=== PATIENT | female | born 1990 | race Caucasian/White ===

== ENCOUNTER → 2017-01-19 | Outpatient (CLI) | payer BC ==
[~2017-01-19] MED LIST: PRENTAB26 PO
[2017-01-19 13:07] LABS: URINE APPEARANCE CLOUDY (CLEAR); URINE BILIRUBIN NEG (NEG); URINE COLOR YELLOW; URINE EPITHELIAL CELL AUTO >30 /lpf (0-5); URINE NITRITE POS (NEG); URINE SPECIFIC GRAVITY 1.025 (1.000-1.030); UROBILINOGEN NEG (NEG)
[2017-01-19 13:18] LABS: MANUAL MICROSCOPIC REQUIRED? NO; REVIEW REQ? NO
== END | disposition home or self-care (01) ==
LOC: C.LABSPEC 12:23
PROVIDERS: ATTEND Obstetrics & Gynecology
DX: R39.9 Unspecified symptoms and signs involving the genitourinary system (principal)

== ENCOUNTER → 2017-09-14 | Outpatient (CLI) | payer BC ==
--- NOTE | 2017-09-14 08:01 | DIAGNOSTIC IMAGING REPORT ---
(RENAL)RETROPERITON COMP HISTORY: 27 years-old Female N23 Renal colic on right [id number] acute right-sided flank pain COMPARISON: None available TECHNIQUE: Multiple real-time sonogram images of the kidneys and urinary bladder were obtained assessing grayscale appearance and color flow FINDINGS: Right kidney measures 10.5 x 4.5 x 5.6 cm and demonstrates mild dilation of the renal pelvis and central calyces without renal calculus or other obstructing etiology identified. Cortical medullary differentiation is preserved. Left kidney measures 11.9 x 5.9 x 4.6 cm and is also within normal limits without renal calculi, hydronephrosis or focal renal mass lesions. Cortical medullary differentiation is preserved. Urinary bladder is unremarkable with bilateral ureteral jets documented. IMPRESSION: 1. Mild right-sided hydronephrosis without renal calculi identified. 2. Unremarkable sonographic appearance of the left kidney and urinary bladder. The above report was generated using voice recognition software. It may contain grammatical, syntax or spelling errors. Electronically signed by: Tejas Espinoza M.D. 09/14/2017 8:00 AM Dictated Date/Time: 09/14/2017 7:56 AM
== END | disposition home or self-care (01) ==
LOC: C.ULTR 07:35
PROVIDERS: ATTEND Obstetrics & Gynecology
DX: N23 Unspecified renal colic (principal)

== ENCOUNTER → 2017-09-18 | Outpatient (CLI) | payer BC | END | disposition home or self-care (01) | LOC: C.LABSPEC 11:11 | PROVIDERS: ATTEND Urology | DX: R31.29 Other microscopic hematuria (principal); R30.0 Dysuria ==

== ENCOUNTER → 2017-09-19 | Outpatient (CLI) | payer BC ==
[2017-09-19 13:23] LABS: ALBUMIN 3.8 gm/dl (3.4-5.0); ALT/SGPT 21 U/L (12-78); AST/SGOT 16 U/L (15-37); BLOOD UREA NITROGEN 9 mg/dl (7-18); CALCIUM 8.6 mg/dl (8.5-10.1); CARBON DIOXIDE 26 mmol/L (21-32); CREATININE 0.66 mg/dl (0.60-1.20); GLUCOSE 93 mg/dl (70-99); POTASSIUM 3.9 mmol/L (3.5-5.1); SODIUM 136 mmol/L (136-145)
[2017-09-19 13:26] LABS: ALKALINE PHOSPHATASE 60 U/L (45-117); TOTAL PROTEIN 7.5 gm/dl (6.4-8.2)
== END | disposition home or self-care (01) ==
LOC: C.LABPBG 08:52
PROVIDERS: ATTEND Urology
DX: R31.29 Other microscopic hematuria (principal); R30.0 Dysuria

== ENCOUNTER → 2017-09-24 | Outpatient (CLI) | payer BC ==
--- NOTE | 2017-09-24 08:12 | DIAGNOSTIC IMAGING REPORT ---
ABDOMEN AND PELVIS CT WITHOUT CONTRAST CT DOSE: 568.50 mGy.cm HISTORY: Acute hematuria with intermittent lower pelvic pain . Mild right-sided hydronephrosis seen on comparison ultrasound R31.29 Hematuria, microscopic TECHNIQUE: Multiaxial CT images of the abdomen and pelvis were performed without contrast. A dose lowering technique was utilized adhering to the principles of ALARA. COMPARISON STUDY: Renal ultrasound 09/14/2017. FINDINGS: Lung bases are generally clear. No pneumatosis or pneumoperitoneum. Imaged inferior cardiac chambers are unremarkable. The liver, spleen, gallbladder, pancreas and adrenal glands are within normal limits. Kidneys, ureters and urinary bladder are within normal limits. No renal or ureteral calculi or hydronephrosis. Uterus and adnexa are within normal limits. Object within the vagina suggests tampon. Aorta is normal in course and caliber. No bulky adenopathy. There is no bowel obstruction or focal bowel wall thickening. No evidence of acute appendicitis. Soft tissues are unremarkable. Bones appear intact. Mild endplate degenerative changes are noted within the thoracic and lumbar spine. IMPRESSION: No acute intra-abdominal or intrapelvic abnormality identified, specifically no renal calculi or hydronephrosis. Electronically signed by: Tejas Espinoza M.D. 09/24/2017 8:10 AM Dictated Date/Time: 09/24/2017 8:03 AM
== END | disposition home or self-care (01) ==
LOC: C.CTS 07:50
PROVIDERS: ATTEND Urology
DX: R31.29 Other microscopic hematuria (principal)

== ENCOUNTER 2024-01-31 10:47 | Observation (INO) ==
[2024-01-31] MEDS: SODIUM CHLORIDE 0.9% 1,000 ML IV SCH (11:22)
[2024-01-31 11:49] LABS: Appearance Urine Clear (Clear); Bacteria Urine Automated None Seen (None Seen); Bilirubin Urine Negative (Negative); Blood Urine 3+ (Negative); Cast Urine Automated 0-2 /lpf (0-2); Color Urine Red; Epithelial Cell Urine Auto 0-2 /hpf (0-2); Glucose Urine UA Negative (Negative); Ketones Urine Negative (Negative); Leukocyte Esterase Urine Negative (Negative); Nitrite Urine Negative (Negative); Protein Urine 1+ (Negative); RBC Urine Automated >20 /hpf (0-2); Specific Gravity Urine 1.004 (1.000-1.030); Urobilinogen Urine Negative (Negative); WBC Urine Automated 0-5 /hpf (0-5)
[2024-01-31 12:01] LABS: Hematocrit (blood only) 20.6 % (37.0-47.0); Hemoglobin 6.6 g/dl (12.0-16.0); Mean Corpuscular Hemoglobin 27.2 pg (25.0-34.0); Mean Corpuscular Volume 84.8 fL (80.0-100.0); Mean Platelet Volume 10.5 fL (9.4-12.4); Platelet Count 286 K/uL (130-400); RDW Coefficient of Variation 14.6 % (11.5-14.5); RDW Standard Deviation 45.6 fL (36.4-46.3); Red Blood Count 2.43 M/uL (4.20-5.40); White Blood Count 6.87 K/ul (4.8-10.8)
[2024-01-31 12:02] LABS: Albumin Globulin Ratio 1.6 (0.9-2); Albumin Level 3.7 gm/dl (3.4-5.0); BUN Creatinine Ratio 7.7 (10-20); Bilirubin,Total 0.2 mg/dl (0.2-1.0); Calcium 8.4 mg/dl (8.6-10.3); Creatinine Clr Calc Pharmacy 120.4 ml/min; Est GFR (African American) 134.3 ml/min; Est GFR (Non-African American) 115.8 ml/min; Globulin 2.3 gm/dl (2.5-4.0); Potassium 3.5 mmol/L (3.5-5.1)
[2024-01-31 12:08] LABS: Basophils # (auto) 0.03 K/uL (0.00-0.20); Basophils % (auto) 0.4 %; Eosinophils # (auto) 0.08 K/uL (0.00-0.50); Eosinophils % (auto) 1.2 %; Immature Granulocytes # (auto) 0.03 K/uL (0.01-0.20); Immature Granulocytes % (auto) 0.4 %; Lymphocytes # (auto) 2.38 K/uL (1.20-3.40); Lymphocytes % (auto) 34.6 %; Monocytes % (auto) 4.4 %; Neutrophils # (auto) 4.05 K/uL (1.40-6.50); Polychromasia 1+
[2024-01-31] MEDS ORDERED: SODIUM CHLORIDE 0.9% 250 ML IV PRN ×2 (12:10→12:41)
--- NOTE | 2024-01-31 14:08 | Ultrasound Report ---
US pelvic complete CLINICAL HISTORY: recent AB, vag bleeding, hgb 6 TECHNIQUE: Real-time sonographic images of the pelvic contents were obtained with transabdominal and transvaginal technique. Comparison: Comparison is made to pelvic ultrasound 01/29/2024 FINDINGS: The uterus measures 10.2 x 6.1 x 4.5 cm. The endometrial cavity echo stripe measures 2.0 cm in thickn ess. Endometrial contents are heterogeneous and vascular. The right ovary measures 3.0 x 2.5 x 1.8 cm. The left ovary measures 3.2 x 2.2 x 1.3 cm. Normal appea kayli of the ovaries bilaterally. Doppler flow is seen bilaterally. There was no fluid in the cul-de-sac. IMPRESSION: Vascular irregular masses within the endometrium concerning for retained products of conception. ACT 112: Negative or not required by law. Electronically signed by: Adal Yoo M.D. 01/31/2024 2:06 PM
[2024-01-31] MEDS ORDERED: LIDOCAINE 2% 2 ML VIAL/AMP(20MG/ML) INFIL ONE (14:57)
[2024-01-31] MEDS ORDERED: fentaNYL citrate PF 100 MCG/2 ML VIAL ONE (14:58)
[2024-01-31] MEDS ORDERED: ONDANSETRON INJ 2 MG/ML 2 ML VIAL ONE (14:58)
[2024-01-31] MEDS ORDERED: MIDAZOLAM HCL 1 MG/ML 2ML VIAL ONE (14:58)
[2024-01-31] MEDS ORDERED: PROPOFOL IV EMULSION 10 MG/ML 20 ML VIAL IV ONE ×2 (14:58→16:10)
[2024-01-31] MEDS ORDERED: DEXAMETHASONE SOD INJ 4 MG/ML VIAL ONE (14:58)
--- NOTE | 2024-01-31 15:06 | OB/GYN Consultation ---
Date of Consultation January 31, 2024 Assessment & Plan (1) Incomplete : (2) Retained products of conception following : Plan Plan to go to the OR for D&E. The risks of surgery were discussed with the patient including the risks of anesthesia, bleeding requiring transfusion, infection, poor wound healing, approx. 1% risk of uterine perforation with need for further surgery, hospitalization or intervention. There is also risk of injury to other organs including bowel, bladder, vessels, nerves or ureters. The other risks of any surgery were discussed including heart attack, blood clot, stroke, or . Consent reviewed and signed. Currently has her first unit of blood hanging. History of Present Illness Reason for Consultation: heavy vb after medical termination Requesting Physician: Elza History of Present Illness Patient is a [id number] who underwent a medical termination of with mifepristone and misoprostel on 12/26. thought she had passed tissue and her bleeding had slowed after about three days. Had slimy brown d/c and spotting since then. The in 01/28 she had significantly increased bleeding. She presented to the ED hgb at that time 10. US showed a lining of 1.2cm and concern for products of conception. She was evaluated and eventually sent home with close f/u in the office as her bleeding had apparently decreased. Presented back to the ED today as she was coming for lab work and felt dizzy, lightheaded like she was going to pass out. She returned to the ED. She notes overall her bleeding has slowed but does continue to pass clots at times. She feels fatigued. Her hgb today was 6.6 and given she is symptomatic, she is currently being transfused. Her vitals are stable and her pulse is less than 100. Her us is now more convincing of retained pocs with a lining measuring 2cm and quite vascular. I suspect she has retained pocs that she is unable to pass and given she is now being transfused, recommend dilation and evacuation. Allergies Allergy/AdvReac Type Severity Reaction Status Date / Time cat dander Allergy Mild SNEEZING Verified 01/29/24 19:57 nickel Allergy Verified 01/29/24 19:57 No Known Drug Allergies Allergy Verified 01/24/23 09:43 Home Medications Medication Instructions Recorded Confirmed Type multivitamin 1 tab PO DAILY 07/19/20 01/29/24 History ascorbic acid (vitamin C) 500 mg 500 mg PO DAILY 01/29/24 01/29/24 History tablet (Vitamin C) cholecalciferol (vitamin D3) 25 25 mcg PO DAILY 01/29/24 01/29/24 History mcg (1,000 unit) chewable tablet (Vitamin D3) ferrous sulfate 325 mg (65 mg 325 mg PO DAILY 01/29/24 01/29/24 History iron) tablet Patient History Medical History Hemorrhoids H/O varicella Surgical History H/O wisdom tooth extraction Family History Grandmother Leukemia Bone cancer Colorectal cancer paternal Breast cancer Grandfather (Maternal) Colorectal cancer Other Stroke Denies family history of Ovarian cancer Social History Smoking Status: Never smoker Do You Dip or Chew Tobacco: No; Hx Alcohol Use: Yes (occasional) Hx Substance Use: No Preferred Language: Citizen Of [place] Feels Safe at Home: Yes Physical Exam Constitutional: WD/WN, vitals as above Gastrointestinal (Abdomen): soft, nt, nd Psychiatric: A+Ox3, euthymic affect Genitourinary: deferred as going to the OR Results & Data Vital Signs (Past 12 Hours) Vital Signs Temp Pulse Resp BP Pulse Ox O2 Del Method O2 Flow Rate 01/31/24 14:45 129/69 01/31/24 14:45 96 H 21 100 Room Air 01/31/24 14:35 36.9 C 91 H 20 117/67 100 0 01/31/24 14:30 117/67 01/31/24 14:30 95 H 21 99 01/31/24 14:20 126/80 01/31/24 14:20 92 H 24 100 01/31/24 14:20 37.0 C 96 H 18 126/80 100 01/31/24 14:05 36.8 C 109 H 18 132/76 100 01/31/24 14:03 132/76 01/31/24 14:03 115 H 36 H 100 01/31/24 13:58 118 H 14 100 05/23/24 12:31 127/67 01/31/24 12:31 98 H 30 H 100 01/31/24 12:30 103 H 20 100 01/31/24 12:00 112/51 L 01/31/24 12:00 85 20 100 Room Air 01/31/24 11:36 83 21 100 01/31/24 11:36 85 01/31/24 11:01 100 Room Air 01/31/24 11:01 100 Room Air 0 01/31/24 10:56 36.4 C L 103 H 20 117/56 L 100 Room Air PG Care Time/CCT Total # of Minutes Spent Total Time Spent with Patient: Total time spent is greater than 50% in coordination of care (as documented) at patient's floor/unit and/or counseling patient: Coding Level of Care Code None Diagnoses Incomplete O03.4 Retained products of conception following O03.4
--- NOTE | 2024-01-31 15:23 | Emergency Department Note ---
Impression & Plan Severe anemia, Retained products of conception following ED Provider Note NAME: KEYANA GIBSON AGE: 33 SEX: Female INFORMANT: Patient ED PROVIDER(S): Kishore Bertrand MD CHIEF COMPLAINT: Dizziness PLAN: Disposition: Admitted Outpatient prescription management: none Referral: None MEDICAL DECISION MAKING: Patient presented because of dizziness. Blood work was obtained. On examination she appeared pale. She was borderline tachycardic with a heart rate. Her bleeding history was concerning albeit improving. CBC showed a marked anemia with a hemoglobin of 6.6. Remainder of labs are unremarkable. Patient had normal sinus rhythm on ECG. Discussed blood transfusion with patient and significant other. Patient consented. Consulted with [facility], Dr. Zelaya. Reviewed the patient's history and she did request a repeat ultrasound. This was performed. This was concerning for retained products of conception. Transfusion initiated in the ER. On reassessment the patient was feeling better Dr. Zelaya did evaluate the patient in the ER. She felt the patient would need procedural intervention. She will admit the patient for further management Care/management discussed with: hotel general manager Level of care consideration(s): After review of the information above and other included data, I feel the patient requires escalation of care to admission. Triage Nursing notes: reviewed and agree them. Vital Signs: reviewed and remarkable for no significant abnormalities Additional History obtained from: none Chronic Medical/Social Conditions affecting care: none Prior/ Outside/ External records reviewed: Prior ED record reviewed. Differential Diagnosis: Etiologies such as retained products, ectopic , dysfunction uterine bleeding, bleeding dyscrasia, trauma, infection, as well as others were entertained. Diagnostics, independently interpreted by me: EC Lead ECG performed and revealed Normal sinus rhythm at 99, normal [place], QRS normal. No elevation or depression. No PACs or PVCs Cardiac Monitoring: Cardiac monitoring ordered by me: The patient was placed on continuous cardiac monitoring and observed. It revealed a sinus tachycardia at 115 beats per minute without ectopy or evidence of dysrhythmia. Medical decision rules: none Imaging studies: Ultrasound concerning for retained products. HPI: 33 year old Female arrives for evaluation of dizziness. Patient was getting outpatient lab testing done and was feeling dizzy. Her blood pressure was mildly low and patient presented to the emergency department. She was seen 2 days ago for vaginal bleeding after medical . Patient was going to follow-up with [facility] as an outpatient but that did not happen yet. She noted significant bleeding on the day of evaluation and still had moderate bleeding yesterday but it did start to decrease. She has had decreased bleeding today but is still passing a few clots. Patient denies any pain. Pt denies LOC, headache, fevers, chills, diaphoresis, visual changes, neck pain, chest pain, breathing difficulties, nausea, vomiting, abdominal pain, back pain, melena, hematochezia, urinary symptoms, numbness, weakness,, rash, or other complaints.. PAST MEDICAL HISTORY: See Below, IBS PAST SURGICAL HISTORY: See Below, SOCIAL HISTORY: See Below, non-smoker HOME MEDICATIONS: See Below ALLERGIES: See Below VITALS: See Below PHYSICAL EXAMINATION: GENERAL: Awake, alert, well-appearing, in no distress HENT: Normocephalic, atraumatic. Oropharynx unremarkable. EYES: Pale conjunctiva. Sclera non-icteric. NECK: Inspection normal. Non-tender. Supple. No nuchal rigidity. FROM. No masses. RESPIRATORY: Clear to auscultation. No wheezes. No rales. Normal respiratory effort. CARDIAC: No borderline tachycardic mal rate. Normal rhythm. No murmurs. No rubs. Extremities warm and well perfused. Pulses equal. No JVD. GI: Soft, non-distended. No tenderness to palpation. No rebound or guarding. No masses. RECTAL: Deferred. MUSCULOSKELETAL: Atraumatic. Chest examination reveals no tenderness. The back is symmetrical on inspection without obvious abnormality. There is no CVA tenderness to palpation. No joint edema. LOWER EXTREMITIES: Calves are equal size bilaterally and non-tender. No edema. No discoloration. NEURO: Normal sensorium. No sensory or motor deficits noted. SKIN: No rash or jaundice noted. PROCEDURES: none CRITICAL CARE: I have personally spent 40 minutes of critical care time in the direct management of this patient. This includes bedside care, interpretation of diagnostic studies, and testing, discussion with consultants, patient, and family members, arranging transfusion, and other required patient management activities. These minutes are in excess of all separately billable procedures. OBSERVATION NOTE: none Past Med/Surg History Problem List (Updated 01/31/24 @ 15:23 by Kishore Bertrand MD) Retained products of conception following (Acute) Severe anemia (Acute) Retained products of conception following Incomplete (Acute) RLQ abdominal pain Fibroids Encounter for gynecological examination without abnormal finding PMS (premenstrual syndrome) IBS (irritable colon syndrome) (Acute) Medical History Hemorrhoids H/O varicella Surgical History H/O wisdom tooth extraction Family History Grandmother Leukemia Bone cancer Colorectal cancer paternal Breast cancer Grandfather (Maternal) Colorectal cancer Other Stroke Denies family history of Ovarian cancer Social History Smoking Status: Never smoker Do You Dip or Chew Tobacco: No; Hx Alcohol Use: Yes (occasional) Hx Substance Use: No Preferred Language: Hungarian Feels Safe at Home: Yes Allergies Allergies Allergy/AdvReac Type Severity Reaction Status Date / Time cat dander Allergy Mild SNEEZING Verified 01/31/24 15:12 nickel Allergy Unknown Verified 01/31/24 15:12 No Known Drug Allergies Allergy 0 Verified 01/31/24 15:12 Home Meds Home Medications Medication Instructions Recorded Confirmed multivitamin 1 tab PO DAILY 07/19/20 01/31/24 ascorbic acid (vitamin C) 500 mg 500 mg PO DAILY 01/29/24 01/31/24 tablet (Vitamin C) cholecalciferol (vitamin D3) 25 25 mcg PO DAILY 01/29/24 01/31/24 mcg (1,000 unit) chewable tablet (Vitamin D3) ferrous sulfate 325 mg (65 mg 325 mg PO DAILY 01/29/24 01/31/24 iron) tablet ibuprofen 200 mg tablet 400 mg PO Q6H PRN Pain 01/31/24 01/31/24 Results & Data (ED) Vital Signs Vital Signs - 24 hr 01/31/24 10:56 01/31/24 11:01 01/31/24 11:01 Temperature 36.4 C L Temperature Source Temporal Artery Scan Pulse Rate 103 H Pulse Rate from SpO2 Sensor Respiratory Rate 20 Blood Pressure 117/56 L Blood Pressure Mean 76 Blood Pressure Position Pulse Oximetry 100 100 100 Oxygen Delivery Method Room Air Room Air Room Air Oxygen Flow Rate 0 Sepsis Recent Fever Within 48 Hours No Sepsis New/Unexplained Change in Mental Status N/A Sepsis Action Taken by Nursing No Action Required Oxygen Flow Rate - Titration 0 01/31/24 11:36 01/31/24 11:36 01/31/24 12:00 Temperature Temperature Source Pulse Rate 85 83 85 Pulse Rate from SpO2 Sensor 85 84 Respiratory Rate 21 20 Blood Pressure Blood Pressure Mean Blood Pressure Position Pulse Oximetry 100 100 Oxygen Delivery Method Room Air Oxygen Flow Rate Sepsis Recent Fever Within 48 Hours Sepsis New/Unexplained Change in Mental Status Sepsis Action Taken by Nursing Oxygen Flow Rate - Titration 01/31/24 12:00 01/31/24 12:30 01/31/24 12:31 Temperature Temperature Source Pulse Rate 103 H 98 H Pulse Rate from SpO2 Sensor 104 H 102 H Respiratory Rate 20 30 H Blood Pressure 112/51 L Blood Pressure Mean 66 Blood Pressure Position Pulse Oximetry 100 100 Oxygen Delivery Method Oxygen Flow Rate Sepsis Recent Fever Within 48 Hours Sepsis New/Unexplained Change in Mental Status Sepsis Action Taken by Nursing Oxygen Flow Rate - Titration 01/31/24 12:31 01/31/24 13:58 01/31/24 14:03 Temperature Temperature Source Pulse Rate 118 H 115 H Pulse Rate from SpO2 Sensor 115 H 114 H Respiratory Rate 14 36 H Blood Pressure 127/67 Blood Pressure Mean 82 Blood Pressure Position Pulse Oximetry 100 100 Oxygen Delivery Method Oxygen Flow Rate Sepsis Recent Fever Within 48 Hours Sepsis New/Unexplained Change in Mental Status Sepsis Action Taken by Nursing Oxygen Flow Rate - Titration 01/31/24 14:03 01/31/24 14:05 01/31/24 14:20 Temperature 36.8 C 37.0 C Temperature Source Oral Oral Pulse Rate 109 H 96 H Pulse Rate from SpO2 Sensor Respiratory Rate 18 18 Blood Pressure 132/76 132/76 126/80 Blood Pressure Mean 94 94 95 Blood Pressure Position Lying Pulse Oximetry 100 100 Oxygen Delivery Method Oxygen Flow Rate Sepsis Recent Fever Within 48 Hours Sepsis New/Unexplained Change in Mental Status Sepsis Action Taken by Nursing Oxygen Flow Rate - Titration 01/31/24 14:20 01/31/24 14:20 01/31/24 14:30 Temperature Temperature Source Pulse Rate 92 H 95 H Pulse Rate from SpO2 Sensor 94 H 95 H Respiratory Rate 24 21 Blood Pressure 126/80 Blood Pressure Mean 93 Blood Pressure Position Pulse Oximetry 100 99 Oxygen Delivery Method Oxygen Flow Rate Sepsis Recent Fever Within 48 Hours Sepsis New/Unexplained Change in Mental Status Sepsis Action Taken by Nursing Oxygen Flow Rate - Titration 01/31/24 14:30 01/31/24 14:35 01/31/24 14:45 Temperature 36.9 C Temperature Source Oral Pulse Rate 91 H 96 H Pulse Rate from SpO2 Sensor 95 H Respiratory Rate 20 21 Blood Pressure 117/67 117/67 Blood Pressure Mean 84 83 Blood Pressure Position Pulse Oximetry 100 100 Oxygen Delivery Method Room Air Oxygen Flow Rate 0 Sepsis Recent Fever Within 48 Hours Sepsis New/Unexplained Change in Mental Status Sepsis Action Taken by Nursing Oxygen Flow Rate - Titration 01/31/24 14:45 01/31/24 14:59 Temperature Temperature Source Pulse Rate Pulse Rate from SpO2 Sensor Respiratory Rate Blood Pressure 129/69 Blood Pressure Mean 88 Blood Pressure Position Pulse Oximetry Oxygen Delivery Method Room Air Oxygen Flow Rate Sepsis Recent Fever Within 48 Hours Sepsis New/Unexplained Change in Mental Status Sepsis Action Taken by Nursing Oxygen Flow Rate - Titration Laboratory Data 01/31/24 11:17 01/31/24 11:17 Lab Results 01/31/24 01/31/24 01/31/24 Range/Units 11:17 11:21 11:24 WBC 6.87 (4.8-10.8) K/ul RBC 2.43 L (4.20-5.40) M/uL Hgb 6.6 L* D (12.0-16.0) g/dl Hct 20.6 L* (37.0-47.0) % MCV 84.8 (80.0-100.0) fL MCH 27.2 (25.0-34.0) pg MCHC 32.0 (32.0-36.0) g/dL RDW Std Deviation 45.6 (36.4-46.3) fL RDW Coeff of Yudi 14.6 H (11.5-14.5) % Plt Count 286 (130-400) K/uL MPV 10.5 (9.4-12.4) fL Immature Gran % (Auto) 0.4 % Neut % (Auto) 59.0 % Lymph % (Auto) 34.6 % [place] % (Auto) 4.4 % Eos % (Auto) 1.2 % Baso % (Auto) 0.4 % Neut # (Auto) 4.05 (1.40-6.50) K/uL Lymph # (Auto) 2.38 (1.20-3.40) K/uL [place] # (Auto) 0.30 (0.11-0.59) K/uL Eos # (Auto) 0.08 (0.00-0.50) K/uL Baso # (Auto) 0.03 (0.00-0.20) K/uL Immature Gran # (Auto) 0.03 (0.01-0.20) K/uL Polychromasia 1+ Sodium 137 (136-145) mmol/L Potassium 3.5 (3.5-5.1) mmol/L Chloride 105 (98-107) mmol/L Carbon Dioxide 24 (21-32) mmol/L Anion Gap 8 (3-11) BUN 5 L (6-23) mg/dl Creatinine 0.65 (0.6-1.2) mg/dl Est Cr Clr Drug Dosing 120.4 ml/min Est GFR ( Amer) 134.3 ml/min Est GFR (Non-Af Amer) 115.8 ml/min BUN/Creatinine Ratio 7.7 L (10-20) Glucose 106 H (70-99(Fasting)) mg/dl Calcium 8.4 L (8.6-10.3) mg/dl Total Bilirubin 0.2 (0.2-1.0) mg/dl AST 16 (13-39) U/L ALT 11 (7-52) U/L Alkaline Phosphatase 33 L (34-104) U/L Total Protein 6.0 (6.0-8.3) gm/dl Albumin 3.7 (3.4-5.0) gm/dl Globulin 2.3 L (2.5-4.0) gm/dl Albumin/Globulin Ratio 1.6 (0.9-2) HCG, Quant 4221 mIU/ml Urine Color Red Urine Appearance Clear (Clear) Urine pH 7.0 (4.5-7.5) Ur Specific [place] 1.004 (1.000-1.030) Urine Protein 1+ H (Negative) Urine Glucose (UA) Negative (Negative) Urine Ketones Negative (Negative) Urine Blood 3+ H (Negative) Urine Nitrite Negative (Negative) Urine Bilirubin Negative (Negative) Urine Urobilinogen Negative (Negative) Ur Leukocyte Esterase Negative (Negative) Urine WBC (Auto) 0-5 (0-5) /hpf Urine RBC (Auto) >20 H (0-2) /hpf U Hyaline Cast (Auto) 0-2 (0-2) /lpf U Epithel Cells (Auto) 0-2 (0-2) /hpf Urine Bacteria (Auto) None Seen (None Seen) Blood Type A Positive Antibody Screen NEGATIVE Crossmatch See Detail Administered Medications Discontinued Medications Sodium Chloride (Nss) 1,000 mls @ 999 mls/hr IV .Q1H1M LAVERN Stop: 01/31/24 12:15 Last Infusion: 01/31/24 12:15 Dose: Infused Documented By: Admin: 01/31/24 11:22 Dose: 999 mls/hr Documented By: SCOTT Imaging Data Radiologist's Impression: Pelvis Ultrasound 01/31/24 12:41 US pelvic complete CLINICAL HISTORY: recent AB, vag bleeding, hgb 6 TECHNIQUE: Real-time sonographic images of the pelvic contents were obtained with transabdominal and transvaginal technique. Comparison: Comparison is made to pelvic ultrasound 01/29/2024 FINDINGS: The uterus measures 10.2 x 6.1 x 4.5 cm. The endometrial cavity echo stripe measures 2.0 cm in thickness. Endometrial contents are heterogeneous and vascular. The right ovary measures 3.0 x 2.5 x 1.8 cm. The left ovary measures 3.2 x 2.2 x 1.3 cm. Normal appearance of the ovaries bilaterally. Doppler flow is seen bilaterally. There was no fluid in the cul-de-sac. IMPRESSION: Vascular irregular masses within the endometrium concerning for retained products of conception. ACT 112: Negative or not required by law. Electronically signed by: Adal Yoo M.D. 01/31/2024 2:06 PM Discharge Plan Visit Data Chief Complaint: Dizziness Stated Complaint: CHEST TIGHTNESS,DIZZINESS ED Provider: Kishore Bertrand Discharge Problem: Severe anemia, Retained products of conception following Patient Disposition: Admitted As Inpatient Discharge Instructions Interventions: ED Discharge Assessment Last Done: 01/31/24 14:59 Forms Stand Alone Forms: [employer] Prescriptions Prescriptions: No Action multivitamin Tablet 1 tab PO DAILY ascorbic acid (vitamin C) [Vitamin C] 500 mg Tablet 500 mg PO DAILY ferrous sulfate 325 mg (65 mg iron) Tablet 325 mg PO DAILY cholecalciferol (vitamin D3) [Vitamin D3] 25 mcg (1,000 unit) Tablet,Chewable 25 mcg PO DAILY ibuprofen 200 mg Tablet 400 mg PO Q6H PRN (Reason: Pain) Referrals Referrals: Mayte Chappell MD [Primary Care Provider] -
[2024-01-31] MEDS ORDERED: ATROPINE SULFATE 0.1 MG/ML 10ML SYR IV PRN (15:31)
[2024-01-31] MEDS ORDERED: fentaNYL citrate PF 100 MCG/2 ML VIAL IV PRN (15:31)
[2024-01-31] MEDS ORDERED: ONDANSETRON INJ 2 MG/ML 2 ML VIAL IV PRN (15:31)
[2024-01-31] MEDS ORDERED: ePHEDrine sulfate 50 MG/ML AMP IV PRN (15:31)
--- NOTE | 2024-01-31 15:31 | Anesthesiology Consultation ---
Date of Service January 31, 2024 Assessment & Plan Chart Review Chart Review: Acceptable Risk for Surgery and Patient NOT seen in Pre Admission Testing Consults Requested none ASA [id number] Proposed Anesthesia Anesthesia Type: General Risk / Benefits Reviewed With: PT / POA / Parent / Guardian, Accepts Plan and Informed Consent Obtained History Surgery Operation Date: 01/31/24 12:30 Proposed Procedures p Dilation and Evacuation - Valerie Zelaya MD, FACOG Height/Weight Height: 5 ft 3 in Weight: 77.8 kg Allergies Allergy/AdvReac Type Severity Reaction Status Date / Time cat dander Allergy Mild SNEEZING Verified 01/31/24 15:12 nickel Allergy Unknown Verified 01/31/24 15:12 No Known Drug Allergies Allergy 0 Verified 01/31/24 15:12 Medications Home Medications Medication Instructions Recorded Confirmed Last Taken multivitamin 1 tab PO DAILY 07/19/20 01/31/24 01/29/24 ascorbic acid (vitamin C) 500 mg 500 mg PO DAILY 01/29/24 01/31/24 01/29/24 tablet (Vitamin C) cholecalciferol (vitamin D3) 25 25 mcg PO DAILY 01/29/24 01/31/24 01/29/24 mcg (1,000 unit) chewable tablet (Vitamin D3) ferrous sulfate 325 mg (65 mg 325 mg PO DAILY 01/29/24 01/31/24 01/29/24 iron) tablet ibuprofen 200 mg tablet 400 mg PO Q6H PRN Pain 01/31/24 01/31/24 Unknown NPO Date Last Intake of Fluids: 01/31/24 Time Last Intake of Fluids: 08:00 Date Last Intake of Solids: 01/31/24 Time Last Intake of Solids: 08:00 Past Medical History Medical History Hemorrhoids H/O varicella Exercise / Class Metabolic Activity II 4-5 Yardwork/Stairs/Walk up hill Past Family History Family History Grandmother Leukemia Bone cancer Colorectal cancer paternal Breast cancer Grandfather (Maternal) Colorectal cancer Other Stroke Denies family history of Ovarian cancer Past Surgical History Surgical History H/O wisdom tooth extraction Past Anesthesia History No Hx of Anesthesia Complications and No Family Hx of Anesthesia Complications History of PONV No Hx of PONV and No Hx of Motion Sickness Social History Smoking Status: Never smoker Do You Dip or Chew Tobacco: No Hx Alcohol Use: Yes (occasional) Hx Substance Use: No Review of Systems Respiratory: + dyspnea (mild, improving with transfusion) Neurologic: + syncope (presyncope, improving with transfusion) Physical Exam Vital Signs Last Vital Signs Temp 36.9 C 01/31/24 15:15 Pulse 113 H 01/31/24 15:15 Resp 20 01/31/24 15:15 BP 131/70 01/31/24 15:15 Pulse Ox 98 01/31/24 15:15 O2 Del Method Room Air 01/31/24 15:15 O2 Flow Rate 0 01/31/24 14:35 ENMT Mouth: no dentition abnormality Thyromental Distance: > or= 3.5 Finger Breadths Mallampati Class: II Neck normal visual inspection Respiratory normal respiratory effort Auscultation: lungs clear to auscultation bilaterally Cardiovascular Rate/Rhythm: regular rhythm and + tachycardic Psychiatric Orientation: alert Testing Laboratory Results 01/31/24 11:17 01/31/24 11:17 HCG, Quant 4221 mIU/ml 01/31/24 11:17 Urine Color Red 01/31/24 11:24 Urine Appearance Clear (Clear) 01/31/24 11:24 Urine pH 7.0 (4.5-7.5) 01/31/24 11:24 Ur Specific [place] 1.004 (1.000-1.030) 01/31/24 11:24 Urine Protein 1+ (Negative) H 01/31/24 11:24 Urine Glucose (UA) Negative (Negative) 01/31/24 11:24 Urine Ketones Negative (Negative) 01/31/24 11:24 Urine Nitrite Negative (Negative) 01/31/24 11:24 Ur Leukocyte Esterase Negative (Negative) 01/31/24 11:24 Urine WBC (Auto) 0-5 /hpf (0-5) 01/31/24 11:24 Urine RBC (Auto) >20 /hpf (0-2) H 01/31/24 11:24 U Hyaline Cast (Auto) 0-2 /lpf (0-2) 01/31/24 11:24 U Epithel Cells (Auto) 0-2 /hpf (0-2) 01/31/24 11:24 Urine Bacteria (Auto) None Seen (None Seen) 01/31/24 11:24 Blood Type A Positive 01/31/24 11:21 Antibody Screen NEGATIVE 01/31/24 11:21 01/31/24 11:17 HCG, Quant [id number]
--- NOTE | 2024-01-31 15:37 | Electrocardiogram Report ---
Test Reason : Blood Pressure : / mmHG Vent. Rate : 099 BPM Atrial Rate : 099 BPM P-R Int : 180 ms QRS Dur : 072 ms QT Int : 340 ms P-R-T Axes : 073 041 069 degrees QTc Int : 436 ms Normal sinus rhythm Normal ECG When compared with ECG of 22-MAY-2022 11:49, No significant change Confirmed by Dheeraj Ortega ([id number]) on 01/31/2024 3:36:44 PM Referred By: Confirmed By:Dheeraj Ortega
[2024-01-31] MEDS: DOXYCYCLINE HYCLATE 100 MG CAP PO STA (15:47)
[2024-01-31] MEDS: metroNIDAZOLE 500 MG/100 ML BAG IV STA (16:03)
[2024-01-31] MEDS ORDERED: KETOROLAC 30 MG/ML VIAL ONE (16:10)
[2024-01-31] MEDS: METHYLERGONOVINE MALEATE 0.2 MG/ML AMP ONE (16:18)
--- NOTE | 2024-01-31 16:18 | Operative Report ---
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 pocs removed from uterus. Uterus about 6 weeks size. Fluids 600cc Specimens pocs Drains none Anesthesia Type General Complications none Disposition Accompanied Patient To Recovery: No Disposition: Recovery Room Indications [id number] s/p medical with hemorrhage and retained pocs. Description of Procedure The patient was taken to the operating room where she was identified verbally and by bracelet. She placed on the operating table where general anesthetic was induced without difficulty. The patient was placed in the dorsal lithotomy position in candy cane stirrups and prepped and draped in the normal sterile fashion. A time-out was held noting the correct patient, position, procedure, no need for antibiotics. There were no concerns. An exam under anesthesia was done with the above noted findings. The bladder was drained of urine and a weighted speculum was placed in the vagina. Pocs noted from the os and removed with a ring forcep. The anterior lip of the cervix was grasped with a single-toothed tenaculum. The uterus sounded to 8cm. The cervix was already dilated. An 8mm suction curette was placed in to the uterus and pocs were removed. A curettage was performed in 365 degrees and some membranes and tissue removed. Suction curettage again performed with return of minimal tissue. The procedure was terminated. All instruments were removed from the vagina. All sponge, lap and needle counts were correct times two. The patient was taken to the recovery room instable condition. I attest to the content of the Intraoperative Record and any orders documented therein. Any exceptions are noted below. [employer] OPERATOR Minor Procedure Codes D&E 09167 D&E (Incomplete AB)
--- NOTE | 2024-01-31 17:20 | Anesthesiology Progress Note ---
Date of Service January 31, 2024 Anesthesia Post Procedure Vital Signs Vital Signs: Temp Pulse Pulse Resp BP BP Pulse Ox 01/31/24 17:10 37.1 C 100 H 15 138/69 100 01/31/24 17:00 37.1 C 94 H 17 118/67 98 01/31/24 16:50 89 17 134/66 100 01/31/24 16:40 36.9 C 90 16 135/66 100 01/31/24 16:37 36.7 C 100 H 18 120/69 100 01/31/24 16:30 100 H 18 132/67 100 01/31/24 16:23 36.7 C 100 H 20 120/69 100 01/31/24 15:15 36.9 C 113 H 20 131/70 98 01/31/24 14:59 01/31/24 14:45 129/69 01/31/24 14:45 96 H 21 100 01/31/24 14:35 36.9 C 91 H 20 117/67 100 01/31/24 14:30 117/67 01/31/24 14:30 95 H 21 99 01/31/24 14:20 126/80 01/31/24 14:20 92 H 24 100 01/31/24 14:20 37.0 C 96 H 18 126/80 100 01/31/24 14:05 36.8 C 109 H 18 132/76 100 01/31/24 14:03 132/76 01/31/24 14:03 115 H 36 H 100 01/31/24 13:58 118 H 14 100 01/31/24 12:31 127/67 01/31/24 12:31 98 H 30 H 100 01/31/24 12:30 103 H 20 100 01/31/24 12:00 112/51 L 01/31/24 12:00 85 20 100 01/31/24 11:36 83 21 100 01/31/24 11:36 85 01/31/24 11:01 100 01/31/24 11:01 100 01/31/24 10:56 36.4 C L 103 H 20 117/56 L 100 O2 Del Method O2 Flow Rate 01/31/24 17:10 Room Air 01/31/24 17:00 Room Air 01/31/24 16:50 Room Air 01/31/24 16:40 Room Air 01/31/24 16:37 05/23/24 16:30 Room Air 01/31/24 16:23 Room Air 01/31/24 15:15 Room Air 01/31/24 14:59 Room Air 01/31/24 14:45 01/31/24 14:45 Room Air 01/31/24 14:35 0 01/31/24 14:30 01/31/24 14:30 01/31/24 14:20 01/31/24 14:20 01/31/24 14:20 01/31/24 14:05 01/31/24 14:03 01/31/24 14:03 01/31/24 13:58 01/31/24 12:31 01/31/24 12:31 01/31/24 12:30 01/31/24 12:00 01/31/24 12:00 Room Air 01/31/24 11:36 01/31/24 11:36 01/31/24 11:01 Room Air 01/31/24 11:01 Room Air 0 01/31/24 10:56 Room Air Transfer of Care Handoff Completed per policy Notes Mental Status: alert / awake / arousable Patient Amnestic to Procedure: Yes Nausea / Vomiting: adequately controlled Pain: adequately controlled Airway Patency, RR, SpO2: stable & adequate BP & HR: stable & adequate Hydration State: stable & adequate Anesthetic Complications: no major complications apparent Notes: infiltration of R antecubital IV noted on induction. Warm compress placed in PACU and upper arm was softening by the time of PACU discharge. Distal blood flow is uncompromised.
[2024-01-31] MEDS ORDERED: MoRPHine SULFATE 2 MG/ML CARP IV PRN (17:40)
[2024-01-31] MEDS ORDERED: ACETAMINOPHEN 80 MG CHEWABLE TAB PO PRN (17:40)
[2024-01-31] MEDS ORDERED: IBUPROFEN 200 MG/10 ML UDC PO PRN (17:40)
[2024-01-31] MEDS ORDERED: MoRPHine SULFATE 4 MG/ML 1 ML CARP\\VIAL IV PRN (17:40)
[2024-01-31] MEDS ORDERED: LACTATED RINGER'S 1,000 ML IV SCH (17:40)
--- NOTE | 2024-01-31 19:33 | Gynecologic Progress Note ---
Date of Service January 31, 2024 Assessment & Plan (1) Retained products of conception following : (2) Severe anemia: Plan Plan d/c home once voids and ambulates. Discussed precautions. has cpx scheduled with Dr. Ramos on the so will keep that appt. Is ok to restart her ocps once periods return. Admission and Anticipated Discharge Date Admission Date: January 31, 2024 Subjective Patient feeling better. Sitting up in bed. Tolerated regular diet. Getting ready to go to the BR. Second unit of blood is in. Explained to the patient findings at surgery. Vitals are good. Physical Exam Constitutional: WD/WN, vitals as above Psychiatric: A+Ox3, euthymic affect Results & Data Vital Signs (Past 12 Hours) Vital Signs Temp Pulse Pulse Resp BP BP Pulse Ox 01/31/24 19:02 36.5 C 96 H 16 116/70 100 01/31/24 18:50 36.7 C 92 H 16 124/73 100 01/31/24 18:45 99 H 16 124/73 99 01/31/24 18:30 97 H 16 121/71 100 01/31/24 18:25 36.7 C 116 H 16 134/76 100 01/31/24 18:15 95 H 16 150/77 H 100 01/31/24 18:00 36.7 C 96 H 16 143/73 H 100 01/31/24 17:45 95 H 16 140/76 100 01/31/24 17:30 37.0 C 95 H 16 141/79 H 98 01/31/24 17:30 01/31/24 17:30 37.0 C 95 H 18 141/79 H 99 01/31/24 17:10 37.1 C 100 H 15 138/69 100 01/31/24 17:00 37.1 C 94 H 17 118/67 98 01/31/24 16:50 89 17 134/66 100 01/31/24 16:40 36.9 C 90 16 135/66 100 01/31/24 16:37 36.7 C 100 H 18 120/69 100 01/31/24 16:30 100 H 18 132/67 100 01/31/24 16:23 36.7 C 100 H 20 120/69 100 01/31/24 15:15 36.9 C 113 H 20 131/70 98 01/31/24 14:59 05/23/24 14:45 129/69 01/31/24 14:45 96 H 21 100 01/31/24 14:35 36.9 C 91 H 20 117/67 100 01/31/24 14:30 117/67 01/31/24 14:30 95 H 21 99 01/31/24 14:20 126/80 01/31/24 14:20 92 H 24 100 01/31/24 14:20 37.0 C 96 H 18 126/80 100 01/31/24 14:05 36.8 C 109 H 18 132/76 100 01/31/24 14:03 132/76 01/31/24 14:03 115 H 36 H 100 01/31/24 13:58 118 H 14 100 01/31/24 12:31 127/67 01/31/24 12:31 98 H 30 H 100 01/31/24 12:30 103 H 20 100 01/31/24 12:00 112/51 L 01/31/24 12:00 85 20 100 01/31/24 11:36 83 21 100 01/31/24 11:36 85 01/31/24 11:01 100 01/31/24 11:01 100 01/31/24 10:56 36.4 C L 103 H 20 117/56 L 100 O2 Del Method O2 Flow Rate 01/31/24 19:02 01/31/24 18:50 01/31/24 18:45 01/31/24 18:30 01/31/24 18:25 01/31/24 18:15 01/31/24 18:00 01/31/24 17:45 01/31/24 17:30 01/31/24 17:30 Room Air 01/31/24 17:30 Room Air 01/31/24 17:10 Room Air 01/31/24 17:00 Room Air 01/31/24 16:50 Room Air 01/31/24 16:40 Room Air 01/31/24 16:37 01/31/24 16:30 Room Air 01/31/24 16:23 Room Air 01/31/24 15:15 Room Air 01/31/24 14:59 Room Air 01/31/24 14:45 01/31/24 14:45 Room Air 01/31/24 14:35 0 01/31/24 14:30 01/31/24 14:30 01/31/24 14:20 01/31/24 14:20 01/31/24 14:20 01/31/24 14:05 01/31/24 14:03 01/31/24 14:03 01/31/24 13:58 01/31/24 12:31 01/31/24 12:31 01/31/24 12:30 01/31/24 12:00 01/31/24 12:00 Room Air 01/31/24 11:36 01/31/24 11:36 01/31/24 11:01 Room Air 01/31/24 11:01 Room Air 0 01/31/24 10:56 Room Air PG Care Time/CCT Total # of Minutes Spent Total Time Spent with Patient: Total time spent is greater than 50% in coordination of care (as documented) at patient's floor/unit and/or counseling patient: Coding Level of Care Code None Diagnoses Retained products of conception following O03.4 Severe anemia D64.9
--- NOTE | 2024-02-02 10:02 | Discharge Summary ---
Date of Service February 02, 2024 Admission HPI Per Admitting Provider Patient is a 33yowf who underwent a medical termination of with mifepristone and misoprostel on 12/26. thought she had passed tissue and her bleeding had slowed after about three days. Had slimy brown d/c and spotting since then. The in 01/28 she had significantly increased bleeding. She presented to the ED hgb at that time 10. US showed a lining of 1.2cm and concern for products of conception. She was evaluated and eventually sent home with close f/u in the office as her bleeding had apparently decreased. Presented back to the ED today as she was coming for lab work and felt dizzy, lightheaded like she was going to pass out. She returned to the ED. She notes overall her bleeding has slowed but does continue to pass clots at times. She feels fatigued. Her hgb today was 6.6 and given she is symptomatic, she is currently being transfused. Her vitals are stable and her pulse is less than 100. Her us is now more convincing of retained pocs with a lining measuring 2cm and quite vascular. I suspect she has retained pocs that she is unable to pass and given she is now being transfused, recommend dilation and evacuation. Discharge Data Procedures Performed Operation Date: 01/31/24 12:30 Actual Procedures p Dilation and Evacuation(Not Applicable) - Valerie Zelaya MD, [facility] Course (1) Retained products of conception following : (2) Severe anemia: Plan Patient underwent &E without issue. Minimal blood loss with surgery. Please refer to Op report for details. She received her two units of blood without difficulty. Because she was actively receiving a blood transfusion, she needed to come up to the floor and could not stay in postop. She finished her transfusion, ambulated without diffuculty, tolerated a regular diet and voided. she was then d/c to home. Coding Level of Care Code None Diagnoses Retained products of conception following O03.4 Severe anemia D64.9
== END 2024-01-31 20:03 | disposition home or self-care (01) ==
LOC: 4E1 10:47 → ED 10:47 → 4E1 15:00